=== PATIENT | male | born 1995 | race Caucasian/White ===

== ENCOUNTER → 2023-04-12 12:11 | Outpatient (BNVA) | payer BC, MEDICAID, SELFPAY | PROVIDERS: Visit Provider Family Medicine Adult Medicine | DX: M79.89 Other specified soft tissue disorders (principal); R52 Pain, unspecified; Z00.00 Encounter for general adult medical examination without abnormal findings; Z82.61 Family history of arthritis | CPT/HCPCS: 80053; 80061; 84443; 85025; 85651; 86038; 86140; 86200; 86431; 86705; 86706; 86709; 86803; 87340 ==